=== PATIENT | male | born 1995 | race Two or more races ===

== ENCOUNTER 2019-02-23 11:00 | Emergency (ER) | payer SELFPAY ==
[~2019-02-23] VITALS: Ht 165.1 cm; Wt 81.6 kg
[2019-02-23 11:15] VITALS: BP 132/68
== END 2019-02-23 12:35 | disposition home or self-care (01) ==
LOC: ER 11:00
DX: S16.1XXA Strain of muscle, fascia and tendon at neck level, initial encounter (principal); V43.52XA Car driver injured in collision with other type car in traffic accident, initial encounter; Y93.89 Activity, other specified; Y99.8 Other external cause status; Y92.410 Unspecified street and highway as the place of occurrence of the external cause